=== PATIENT | female | born 1935 | race Caucasian/White ===

== ENCOUNTER 2017-08-06 14:04 | Emergency (ER) | payer MEDICARE, SELFPAY ==
--- NOTE | 2017-08-06 15:56 | RAD ---
LEFT KNEE FOUR VIEWS: History: Knee pain. Comparison: None. FINDINGS: Severe medial compartment joint space narrowing. Chondrocalcinosis is present. Small joint effusion. NO acute displaced fracture or malalignment. IMPRESSION: Severe medial compartment osteoarthritic disease. POS: [facility]
[2017-08-06] MEDS ORDERED: Ketorolac Tromethamine 30 MG/ML VIAL ONE (16:36)
--- NOTE | 2017-08-06 16:37 | RAD ---
LUMBAR SPINE 3 VIEWS: HISTORY: Generalized lower back pain. COMPARISON: None. FINDINGS: There is a compression of L1 approximately 50% anterior height loss and 10% posterior height loss. T here is also compression fracture at L2 with approximately 20% anterior height loss. Anterolisthesis of L5 over S1 approximately 6 mm. Extensive vascular calcifications of the aorta. IMPRESSION: 1. L1 and L2 compression fractures, age indeterminate. 2. A 6 mm L5 over S1 anterolisthesis likely due to severe facet arthropathy. POS: [facility]
== END 2017-08-06 18:03 ==
LOC: ERS 14:04
DX: M48.56XA Collapsed vertebra, not elsewhere classified, lumbar region, initial encounter for fracture (principal); E78.5 Hyperlipidemia, unspecified; I10 Essential (primary) hypertension; F03.90 Unspecified dementia, unspecified severity, without behavioral disturbance, psychotic disturbance, mood disturbance, and anxiety; F32.9 Major depressive disorder, single episode, unspecified; I49.9 Cardiac arrhythmia, unspecified
CPT/HCPCS: 72100; 96372; J1885

== ENCOUNTER 2017-09-20 10:53 | Observation (INO) | payer MEDICARE, OTHER ==
[2017-09-20 11:24] LABS: #Basophils 0.1 thou/uL (0.0-0.2); #Lymphocytes 1.1 thou/uL (1.20-3.40); #Monocytes 0.6 thou/uL (0.11-0.59); #Neutrophils 2.2 thou/uL (1.40-6.50); %Basophils 1.7 % (0.0-1.0); %Eosinophils 0.8 % (0.0-10.0); %Lymphocytes 27.4 % (21.0-51.0); %Monocytes 14.3 % (0.0-10.0); %Neutrophils 55.9 % (42.0-75.0); Hemoglobin 12.5 g/dL (12.0-16.0); Mean Corpuscular HGB CONC 32.7 g/dL (32.0-36.0); Mean Corpuscular Hemoglobin 27.2 pg (27.0-31.0); Mean Corpuscular Volume 83.2 fl (81.0-99.0); Mean Platelet Volume 8.8 fL (7.4-10.4); Platelet Count 66 thou/uL (130-400); RBC Distribution Width 13.8 % (11.5-14.5); Red Blood Cell (RBC) Count 4.62 mill/uL (4.20-5.40); White Blood Cell (WBC) Count 3.9 thou/uL (4.8-10.8)
--- NOTE | 2017-09-20 11:35 | RAD ---
CHEST 1 VIEW: HISTORY: Chest pain. COMPARISON: 07/05/15. FINDINGS: Cardiac silhouette is magnified by projection. Pulmonary vasculature unremarkable. Mediastinum midl ine with aortic calcification and a multilead left subclavian cardiac electronic device. Calcified g ranulomata are consistent with healed granulomatous disease. No lobar consolidation or evidence of p neumothorax. IMPRESSION: 1. Atherosclerosis. 2. Chronic-type findings appear stable. POS: [facility]
[2017-09-20 11:52] LABS: ALT (SGPT) 9 U/L (8-55); AST (SGOT) 20 U/L (5-34); Albumin 4.2 g/dL (3.4-4.8); Alkaline Phosphatase 78 U/L (40-150); Anion Gap 13 mmol/L (10-20); BUN (Urea Nitrogen) 16 mg/dL (9.8-20.1); Bilirubin, Total 1.1 mg/dL (0.2-1.2); Calc. Creatinine Clearance 0 mL/min (70-130); Calcium 9.8 mg/dL (7.8-10.44); Carbon Dioxide 30 mmol/L (23-31); Estimated GFR-MDRD 52; Globulin 2.4 g/dL (2.4-3.5); Glucose 94 mg/dL (83-110); Potassium 3.6 mmol/L (3.5-5.1); Protein, Total 6.6 g/dL (6.0-8.3); Sodium 140 mmol/L (136-145)
[2017-09-20 11:55] LABS: CKMB 0.8 ng/mL (0-6.6); Troponin I 0.016 ng/mL (< 0.028)
[2017-09-20 12:12] LABS: Chloride 101 mmol/L (98-107)
[2017-09-20 14:36] LABS: Troponin I 0.024 ng/mL (< 0.028)
[2017-09-20 14:41] VITALS: BMI 29.3
[2017-09-20 17:34] LABS: Troponin I 0.021 ng/mL (< 0.028)
[2017-09-20] MEDS ORDERED: Ketorolac Tromethamine 30 MG/ML VIAL IVP PRN (18:58)
[2017-09-20] MEDS ORDERED: traMADol HCl 50 MG TAB PO PRN (19:06)
[2017-09-20] MEDS ORDERED: Acetaminophen/Codeine 30-300mg Tablet PO PRN (19:07)
[2017-09-20] MEDS ORDERED: Acetaminophen 325 MG TAB PO PRN (19:08)
[2017-09-20] MEDS ORDERED: guaiFENesin/Codeine Phosphate 200 mg/20 mg 10 ml UD Cup PO PRN (19:12)
[2017-09-20] MEDS ORDERED: Fluticasone Propionate Nasal Spray 16 gm Bottle NASAL PRN (19:13)
[2017-09-20] MEDS ORDERED: Loperamide HCl 2 MG CAP PO PRN (19:13)
[2017-09-20] MEDS ORDERED: Melatonin 3 MG TAB PO PRN (19:14)
[2017-09-20] MEDS ORDERED: pyridOXINE 50 MG (B6) TAB PO PRN (19:15)
--- NOTE | 2017-09-20 20:09 | RAD ---
LEFT RIB STANDARD: History: Pain to left rib area. Comparison: Radiograph same day. FINDINGS: No displaced left sided rib fracture. Moderate degenerative disease of the left shoulder. IMPRESSION: No displaced left sided rib fracture. POS: [facility]
[2017-09-20] MEDS ORDERED: Atorvastatin Calcium 10 MG TAB PO SCH (21:00)
[2017-09-20] MEDS: Calcium Carbonate 500 MG ChewTAB PO SCH (21:22)
[2017-09-20] MEDS: Vit A,C & E/Lutein/Minerals Tablet PO SCH (21:22)
--- NOTE | 2017-09-21 00:55 | HP ---
DATE OF ADMISSION: 09/20/2017 REASON FOR ADMISSION AND CHIEF COMPLAINT: Chest pain. HISTORY OF PRESENT ILLNESS: Ms. Flood is an 82-year-old female with past medical histor y of hypertension, status post defibrillator, fractured hip, developed chest pain in the left side be low the left breast area. The patient stated the pain started last night, but got worse this morning . The patient did not have any nausea, vomiting, and no diaphoresis. The patient states the pain is sharp in nature, nonradiating. The patient was sent to hospital because of left-sided chest pain. There is no history of any kind of injury, did not fall, did not hit the chest. In the ER, the patie nt was evaluated and found to have normal cardiac enzymes. In view of risk factors, patient is admit leilani to rule out myocardial infarction. PAST MEDICAL HISTORY: 1. Hypertension. 2. Decreased LV function with expecting on 35%. 3. Cardiac dysrhythmia by history. 4. Fracture, right hip. 5. History of transient ischemic attack. 6. Fracture of the L1-L2, age undetermined. PAST SURGICAL HISTORY: 1. Status post hysterectomy. 2. Status post open reduction and internal fixation, right hip fracture status post defibrillator pl acement. CURRENT MEDICATIONS: The patient is on Tylenol with codeine q.i.d. p.r.n., Zoloft 50 mg daily, aspir in 81 mg daily, calcium carbonate tablets b.i.d., Namenda 10 mg b.i.d., Lipitor 10 mg daily, valsarta n/hydrochlorothiazide 320/12.5 daily, Zofran p.r.n., Flonase nasal spray daily, and melatonin at bedt katina p.r.n. ALLERGIES: No known drug allergies. FAMILY HISTORY: Nothing of interest. SOCIAL HISTORY: The patient is a resident of [facility]. No history of smoking. No hi story of alcohol intake. REVIEW OF SYSTEMS: Cardiovascular: Sharp pain in the left side of the chest. No shortness of breat h. Respiratory: No fever of cough. Gastrointestinal: No nausea or vomiting, no abdominal pain. G enitourinary: No dysuria or hematuria. Central nervous system: No headache, no dizziness. PHYSICAL EXAMINATION: GENERAL: The patient is alert, awake, not well oriented. VITAL SIGNS: Temperature 98, pulse 74, respirations 20, blood pressure 160/70. HEENT: Head is normocephalic, atraumatic. NECK: Supple. No JVD. LUNGS: Bilateral air entry present. No rales or rhonchi. Chest wall tender below the left breast. CARDIAC: S1 and S2, regular. ABDOMEN: Soft, no distention, no tenderness. Normal bowel sounds present. RECTAL: Deferred. CENTRAL NERVOUS SYSTEM: No focal deficit. There is some tenderness in the lower rib area. LABORATORY DATA AND X-RAY FINDINGS: CBC shows WBC 3.9, hemoglobin 12, hematocrit 38, platelets 66. D-dimer 0.42. Metabolic panel: Sodium 140, potassium 3.6, chloride 101, CO2 of 13, BUN 16, creatini ne 1, glucose 94, CK-MB 0.8, troponin 0.016. BNP was 158. Chest x-ray showed chronic changes. EKG showed ventricular paced rhythm, no acute ST-T wave changes. ASSESSMENT: 1. Chest pain, rule out myocardial infarction. 2. Lower rib pain on the left side. 3. Hypertension. 4. History of right hip fracture status post open reduction and internal fixation. 5. Chronic thrombocytopenia. 6. L1-L2 compression fracture old. PLAN: 1. Vital signs q.4 hours. 2. Activity as tolerated. 3. Allergies: NKDA. 4. Hep-Lock. 5. Continue intermediate medication. 6. We will obtain stress test. 7. Toradol 30 q.6 hours p.r.n. 8. X-ray of the left lower ribs.
[2017-09-21] MEDS: Ondansetron ODT 4 MG TAB PO SCH ×3 (01:43→13:03)
[2017-09-21] MEDS ORDERED: Hydrochlorothiazide 25 MG TAB PO SCH (09:00)
[2017-09-21] MEDS ORDERED: Oxybutynin ER 5 MG TAB PO SCH (09:00)
[2017-09-21] MEDS ORDERED: Valsartan 80 MG TAB PO SCH (09:00)
[2017-09-21] MEDS ORDERED: Prevnar 13-Val Conj/PF 0.5 ML SYRINGE IM ONE (09:00)
[2017-09-21] MEDS: Calcium Carbonate 500 MG ChewTAB PO SCH (12:52)
[2017-09-21] MEDS: Vit A,C & E/Lutein/Minerals Tablet PO SCH (12:53)
[2017-09-21] MEDS ORDERED: ADENOSINE 60 MG/20 ML VIAL ONE (14:26)
--- NOTE | 2017-09-21 15:28 | NM ---
CARDIAC SPECT: CLINICAL HISTORY: 82-year-old female with chest pain, hypertension, dyslipidemia, and CVA. TECHNIQUE: A myocardial perfusion scan was performed using the single isotope one day protocol with technetium-9 9m sestamibi. 11 mCi were injected intravenously for the rest exam followed by 32 mCi for the stress exam. Pharmacologic stress with Adenosine was monitored and interpreted by Dr. Seay. FINDINGS: Homogeneous tracer distribution is seen in the myocardial segments on stress and rest images without fixed or reversible defects. GATED SPECT LVEF: 34%. WALL MOTION EXAM: Global hypokinesis. IMPRESSION: No evidence of reversible ischemia. POS: [facility]
[2017-09-21 16:37] VITALS: BP 160/89; TEMP 97.6
--- NOTE | 2017-09-22 11:49 | DIS ---
DATE OF ADMISSION: 09/20/2017 DATE OF DISCHARGE: 09/21/2017 ADMITTING DIAGNOSES: 1. Chest pain. 2. Lower rib pain on the left side. 3. Hypertension. 4. History of right hip fracture. 5. Chronic thrombocytopenia. 6. L1 and L2 compression fracture old. FINAL DIAGNOSES: 1. Chest pain. No evidence of acute myocardial infarction, negative Cardiolite stress test. 2. Lower rib pain on the left side. No evidence of rib fracture. 3. Hypertension. 4. Chronic thrombocytopenia, stable. 5. L1 and L2 compression fracture old. BRIEF SUMMARY OF HOSPITAL COURSE: Ms. Holland is an 82-year-old female admitted because o f chest pain. In view of risk factors, the patient was admitted to rule out myocardial infarction. Serial cardiac enzymes are there within normal limits. A Cardiolite stress test was done and it was reported as negative for coronary ischemia. A rib x-ray was done in the rib area and x-ray of the ri b showed no evidence of fracture. The patient's pain was controlled. She did not require any more p ain medication. In view of improvement, the patient was discharged. At the time of discharge, she w as stable. Her vital signs were stable. Lungs clear. Heart sounds regular. Abdomen soft, nontende r. Bowel sounds present. DISCHARGE MEDICATIONS: Include valsartan with hydrochlorothiazide 320/12.5 daily, Tylenol with codei ne p.r.n., melatonin 1 mg 2 tablets at bedtime p.r.n., Flonase nasal spray daily, Imodium p.r.n., ser traline 50 mg daily, calcium carbonate 500 b.i.d., Namenda 10 mg daily, Ditropan XL 5 mg daily, atorv astatin 10 mg daily, aspirin 81 mg daily, Tylenol p.r.n., tramadol p.r.n. The patient will be followed up at the long term in 2 weeks.
== END 2017-09-21 17:03 ==
LOC: ERS 10:53 → 2NO 14:30
PROVIDERS: ADMIT Internal Medicine; ATTEND Internal Medicine
DX: R07.9 Chest pain, unspecified (principal); R07.81 Pleurodynia; I10 Essential (primary) hypertension; D69.6 Thrombocytopenia, unspecified; I50.30 Unspecified diastolic (congestive) heart failure; Z86.73 Personal history of transient ischemic attack (TIA), and cerebral infarction without residual deficits; Z79.82 Long term (current) use of aspirin; Z79.899 Other long term (current) drug therapy
CPT/HCPCS: 71045; 71100; 78452; 80053; 82553; 83880; 84484 ×2; 85025; 85379; 93005; 93017; 96374; 99285; A9500; G0378; 36415; 96361; J0153; J2270; Q0162

== ENCOUNTER 2017-10-08 08:42 | Day surgery (SDC) | payer MEDICARE ==
[2017-10-07 14:46] VITALS: BMI 31.7
[2017-10-08 09:29] VITALS: BP 169/90; TEMP 97.5
[2017-10-08] MEDS ORDERED: Iopamidol-M 200 41% 20 ML VIAL ONE (09:52)
--- NOTE | 2017-10-08 12:51 | RAD ---
LUMBAR MYELOGRAM: HISTORY: Spinal stenosis. COMPARISON: None. EXPOSURE: 0.6 minutes, 840.5 mGy*^m2. FINDINGS: Two views lumbar spine demonstrate 5 lumbar-type vertebral bodies. There is moderate, chronic compre ssion fracture at L1. There is 2 mm on retrolisthesis of L2 upon L3 and 5 mm anterolisthesis of L5 u alia S1. There are degenerative changes of posterior elements at L4-L5 and L5-S1. Successful lumbar puncture for intrathecal contrast administration. A total of 10 cc of Isovue 200M contrast administered intrathecally. The patient tolerated the procedure well. No immediate or post procedure complication. TECHNIQUE: Consent was obtained to perform a lumbar puncture for intrathecal contrast administration. The patie nt's back was evaluated. The L3-L4 level is deemed appropriate. The skin was prepped and draped in a sterile fashion. 1% Lidocaine, buffered with sodium bicarbonate was used for local anesthesia. Un sushma fluoroscopic guidance, a 22-gauge spinal needle was advanced into the CSF space. A total of 10 c c of Isovue 200M contrast was administered intrathecally. The patient tolerated the procedure well. No immediate or postprocedure complications. IMPRESSION: Successful lumbar puncture for intrathecal contrast administration. POS: [facility]
--- NOTE | 2017-10-08 13:08 | CT ---
POST MYELOGRAM LUMBAR SPINE CT: HISTORY: Spinal stenosis. COMPARISON: None. TECHNIQUE: CT lumbar spine is performed without contrast. Reformatted images are submitted for interpretation. FINDINGS: A moderate chronic compression fracture at L1. Mild chronic compression fracture at L2. 2.8 mm of r etrolisthesis of L2 upon L3. 4 mm anterolisthesis of L5 upon S1. Visualized solid organs, retroperitoneal structures are unremarkable. There is diverticulosis of the colon. No diverticulitis. Posterior decompressive laminectomy defects at L5-S1. Conus medullaris terminates at the L1 level. T11-T12 and T12-L1: No high-grade central canal stenosis or high-grade foraminal narrowing of L1 estella tebral body. Moderate central canal stenosis due to retropulsion. L1-L2: No high-grade central canal stenosis or high-grade foraminal narrowing. L2-L3: No high-grade central canal stenosis or high-grade foraminal narrowing L3-L4: No high-grade central canal stenosis or high-grade foraminal narrowing. L4-L5: No high-grade central canal stenosis or high-grade foraminal narrowing. L5-S1: No high-grade central canal stenosis or high-grade foraminal narrowing. IMPRESSION: 1. Spondylolisthesis as above. 2. Chronic compression fractures as above. 3. No high-grade central canal stenosis or high-grade foraminal narrowing. POS: [facility]
== END 2017-10-08 12:50 | disposition home or self-care (01) ==
LOC: RAD 08:42
PROVIDERS: ATTEND Neurological Surgery
PROC: B02BY0Z Computerized Tomography (CT Scan) of Spinal Cord using Other Contrast, Unenhanced and Enhanced (ICD-10-PCS; principal; 2017-10-08)
DX: M48.062 Spinal stenosis, lumbar region with neurogenic claudication (principal); I25.10 Atherosclerotic heart disease of native coronary artery without angina pectoris; I25.2 Old myocardial infarction; F03.90 Unspecified dementia, unspecified severity, without behavioral disturbance, psychotic disturbance, mood disturbance, and anxiety; D69.6 Thrombocytopenia, unspecified; Z79.82 Long term (current) use of aspirin; Z79.899 Other long term (current) drug therapy
CPT/HCPCS: 62304; 72132

== ENCOUNTER 2019-05-08 11:22 | Observation (INO) | payer MEDICARE, OTHER ==
--- NOTE | 2019-05-08 12:18 | RAD ---
EXAM: Single view of the chest HISTORY: Weakness and altered mental status COMPARISON: 09/20/2017 FINDINGS: Single view of the chest shows a normal sized cardiomediastinal silhouette. A triple lead pacemaker is unchanged in position. A calcified granuloma projects over the right chest. No consolidation or pleural effusion are seen. The bones are unremarkable. IMPRESSION: No evidence of acute cardiopulmonary disease
[2019-05-08 12:25] LABS: #Basophils 0.1 thou/uL (0.0-0.2); #Monocytes 0.6 thou/uL (0.11-0.59); #Neutrophils 2.3 thou/uL (1.40-6.50); %Basophils 1.3 % (0.0-1.0); %Eosinophils 0.8 % (0.0-10.0); %Lymphocytes 24.7 % (21.0-51.0); %Monocytes 14.9 % (0.0-10.0); %Neutrophils 58.4 % (42.0-75.0); Mean Corpuscular HGB CONC 31.9 g/dL (32.0-36.0); Mean Corpuscular Hemoglobin 26.1 pg (27.0-31.0); Mean Platelet Volume 9.4 fL (7.4-10.4); Platelet Count 76 thou/uL (130-400); RBC Distribution Width 13.7 % (11.5-14.5)
[2019-05-08 12:50] LABS: ALT (SGPT) Less than 7 U/L (8-55); AST (SGOT) 14 U/L (5-34); Albumin 3.8 g/dL (3.4-4.8); Alkaline Phosphatase 66 U/L (40-110); Anion Gap 12 mmol/L (10-20); BUN (Urea Nitrogen) 19 mg/dL (9.8-20.1); Bilirubin, Total 0.8 mg/dL (0.2-1.2); Calc. Creatinine Clearance 0 mL/min (70-130); Calcium 9.2 mg/dL (7.8-10.44); Carbon Dioxide 30 mmol/L (23-31); Chloride 103 mmol/L (98-107); Estimated GFR-MDRD 65; Globulin 2.4 g/dL (2.4-3.5); Glucose 91 mg/dL (83-110); Potassium 3.8 mmol/L (3.5-5.1); Protein, Total 6.2 g/dL (6.0-8.3); Sodium 141 mmol/L (136-145)
[2019-05-08 12:55] LABS: Bacteria/HPF 4+ HPF (None Seen); Bilirubin Negative (Negative); Blood, Urine Negative (Negative); Clarity Turbid (Clear); Glucose, Urine (Dipstick) Normal (Negative); Leukocyte Negative Leu/uL (Negative); Nitrite Negative (Negative); Protein, Urine (Dipstick) 30 mg/dL (Neg-Trace); RBC/HPF 0-3 HPF (0-3); Urobilinogen 3 mg/dL (Less than 2); WBC/HPF 0-3 HPF (0-3)
--- NOTE | 2019-05-08 14:11 | CT ---
EXAM: CT brain without contrast HISTORY: Generalized weakness and altered mental status COMPARISON: 11/01/2016 TECHNIQUE: Multiple contiguous axial images were obtained and a CT of the brain without contrast. FINDINGS: The brain is normal in morphology and attenuation without focal lesions or confluent areas of infarction. There is no evidence of hydrocephalus, intracranial hemorrhage, or extra-axial fluid collection. The calvarium and overlying soft tissues are unremarkable. The visualized paranasal sinuses and masto id air cells are well aerated. IMPRESSION: No evidence of acute intracranial abnormality
[2019-05-08] MEDS ORDERED: Ondansetron PF 4 MG/2 ML Vial IVP PRN (17:58)
[2019-05-08] MEDS ORDERED: Ondansetron ODT 4 MG TAB SL PRN (17:58)
[2019-05-08 18:55] VITALS: BMI 30.3
[2019-05-09] MEDS ORDERED: Prevnar 13-Val Conj/PF 0.5 ML SYRINGE IM ONE (09:00)
[2019-05-09] MEDS ORDERED: FLU VACC TS2019-20(65YR UP)/PF 180 MCG/0.5 ML SYRINGE IM ONE (09:00)
[2019-05-09] MEDS ORDERED: Acetaminophen/Codeine 30-300mg Tablet PO PRN ×2 (13:47→14:39)
[2019-05-09] MEDS ORDERED: Acetaminophen 325 MG TAB PO PRN (14:37)
[2019-05-09] MEDS ORDERED: Fluticasone Propionate Nasal Spray 16 gm Bottle NASAL PRN (14:40)
[2019-05-09] MEDS ORDERED: guaiFENesin/Codeine Phosphate 200 mg/20 mg 10 ml UD Cup PO PRN (14:41)
[2019-05-09] MEDS ORDERED: Aspirin Chewable 81 MG TAB PO SCH (15:00)
--- NOTE | 2019-05-09 15:05 | ULT ---
EXAM: Carotid ultrasound HISTORY: Stroke/TIA COMPARISON: 11/02/2016 TECHNIQUE: Multiplanar grayscale and color Doppler images were obtained in a carotid ultrasound. Spec tral analysis of the Doppler waveforms were performed. FINDINGS: No significant plaque is visualized in either internal carotid artery. No significant plaque is seen in either common carotid artery. The Doppler waveforms are normal in the visualized vessels. Peak systolic velocity in the right internal carotid artery 80 cm/s. Peak systolic velocity in the right common carotid artery 63 cm/s. The right ICA/CCA ratio is 1.3. Peak systolic velocity in the left internal carotid artery 47 cm/s. Peak systolic velocity in the left common carotid artery 63 cm/s. The left ICA/CCA ratio is 0.8. Both vertebral arteries demonstrate antegrade flow without focal stenosis IMPRESSION: No evidence of hemodynamically significant stenosis.
[2019-05-09] MEDS: cefTRIAXone\\ROCEPHIN 2 GM in Sodium Chloride 0.9% 100 ML IVPB SCH (19:46)
[2019-05-09] MEDS: Vit A,C & E/Lutein/Minerals Tablet PO SCH (20:34)
[2019-05-09] MEDS ORDERED: Atorvastatin Calcium 10 MG TAB PO SCH (21:00)
[2019-05-10] MEDS: cefTRIAXone\\ROCEPHIN 2 GM in Sodium Chloride 0.9% 100 ML IVPB SCH (06:52)
--- NOTE | 2019-05-10 08:23 | HP ---
CHIEF COMPLAINT: Weakness and change in mental status. HISTORY OF PRESENT ILLNESS: Ms. Holalnd is an 84-year-old female with past medical history of hypertension, dementia, and hyperlipidemia, was found to be complaining of weakness, feeling sick, not eating well, also complained of abdominal pain, lower abdomen. No nausea or vomiting. No fever. No chest pain. No shortness of breath. Because of change in mental status as well as weakness, not eating, the patient was sent to the hospital for suspected stroke. The patient was seen in the ER, felt the patient probably have TIA. Her weakness has improved somewhat. She is admitted for further evaluation and management. PAST MEDICAL HISTORY: 1. Hypertension. 2. Hyperlipidemia. 3. Dementia. 4. History of TIA. 5. Fracture of the L1-L2. 6. LV dysfunction with acute ejection fraction 35%. 7. bipolar disorder. PAST SURGICAL HISTORY: 1. Status post hysterectomy. 2. Status post ORIF, right hip fracture. 3. Status post defibrillator placement. CURRENT MEDICATIONS: The patient is on: 1. Colace 100 mg daily. 2. Depakote 1 capsule daily 125 mg. 3. Mom 30 ml prn. 4. Tylenol p.r.n. 5. Lipitor 10 mg at bedtime. 6. Aspirin 81 mg daily. 7. Imodium p.r.n. 8. Namenda 10 mg daily. 9. Zofran p.r.n. 10. Zoloft 75 mg daily. 11. Ditropan XL 5 mg daily. 12. Valsartan/hydrochlorothiazide 320/12.5 daily. ALLERGIES: NKDA. FAMILY HISTORY: Nothing contributory. SOCIAL HISTORY: The patient is a resident of [facility]. No history of smoking. No history of alcohol. REVIEW OF SYSTEMS: CARDIOVASCULAR: No chest pain. No shortness of breath. RESPIRATORY: No fever or cough. GASTROINTESTINAL: Has abdominal pain. No nausea or vomiting. CENTRAL NERVOUS SYSTEM: No headache. No dizziness. PHYSICAL EXAMINATION: GENERAL: The patient is alert, awake, oriented x2. VITAL SIGNS: Temperature 98, pulse 69, respirations 20, blood pressure 140/80. HEENT: Head is normocephalic and atraumatic. Pupils are equal and reactive. Nasopharynx is pale and dry. NECK: Supple. No JVD. LUNGS: Bilateral air entry present. No rales. No rhonchi. HEART: S1 and S2 regular. ABDOMEN: Soft. No distention. Tender in the suprapubic area. No guarding. No rigidity. Bowel sounds present. RECTAL: Deferred. CENTRAL NERVOUS SYSTEM: The patient alert, awake, oriented x2. Motor system, power 4/5 in all extremities. Deep tendon reflex 2+ bilaterally. Plantars downgoing. Sensory intact. LABORATORY DATA: CBC shows WBC 4, hemoglobin 11, hematocrit 34, platelets 76. Metabolic panel; sodium 140, potassium 3.9, chloride 102, CO2 of 30, BUN 12, creatinine 0.9, glucose 91. Urinalysis; urine wbc 0-3, bacteria 4+. Chest x- ray negative. CT scan of the brain; no evidence of acute intracranial abnormality. EKG shows pacemaker rhythm. ASSESSMENT: 1. Weakness and altered mental status, rule out transient ischemic attack and rule out cerebrovascular accident. 2. Urinary tract infection. 3. Metabolic encephalopathy. 4. Hypertension. 5. Hyperlipidemia. 6. Dementia. 7. LV dysfunction. 8. Status post AICD. PLAN: 1. Vital signs q.4 hours. 2. Activity, as tolerated. 3. Allergies, NKDA. 4. Hep-Lock. 5. Diet, regular. 6. Rocephin 2 g IV piggyback daily. 7. Continue long term medications. 8. CT scan of brain with contrast. 9. The patient will possibly be discharged tomorrow. Job ID: [id number] MTDD
[2019-05-10] MEDS ORDERED: Hydrochlorothiazide 25 MG TAB PO SCH (09:00)
[2019-05-10] MEDS ORDERED: Docusate 100 MG CAP PO SCH (09:00)
[2019-05-10] MEDS ORDERED: Aspirin Chewable 81 MG TAB PO SCH (09:00)
[2019-05-10] MEDS ORDERED: Potassium Chloride 10 MEQ TAB PO SCH (09:00)
[2019-05-10] MEDS ORDERED: Oxybutynin ER 5 MG TAB PO SCH (09:00)
[2019-05-10] MEDS ORDERED: Valsartan 80 MG TAB PO SCH (09:00)
[2019-05-10] MEDS ORDERED: Divalproex Sodium 125 mg Sprinkle Capsule PO SCH (09:00)
--- NOTE | 2019-05-10 09:14 | CT ---
CT Brain WO Con: 05/10/2019 8:00 AM CLINICAL HISTORY: Concern for stroke; poor historian. IMAGING TECHNIQUE: Multiple CT images were obtained of the brain without IV contrast. COMPARISON: CT the brain without contrast dated May 08, 2019 FINDINGS: Brain: The remote cortically and subcortically based right frontal lobe infarct with encephalomalaci a is stable. Severe chronic small vessel white matter ischemic changes stable. Remote lacunar infarct involving the left thalamus is stable. No acute infarct or hemorrhage is present. No midline shift is noted. Ventricles: Normal. No hydrocephalus. Skull: Intact. Visualized Paranasal sinuses: Clear. Mastoid air cells:Clear. Extracranial soft tissues:Normal. IMPRESSION: 1. No acute intracranial abnormality. 2. Stable severe chronic ischemic change as above.
[2019-05-10] MEDS: Vit A,C & E/Lutein/Minerals Tablet PO SCH (09:26)
[2019-05-10 11:35] VITALS: BP 166/82; TEMP 98.2
== END 2019-05-10 12:34 ==
LOC: ERS 11:22 → 2SE 18:45
PROVIDERS: ADMIT Internal Medicine; ATTEND Internal Medicine
DX: R53.1 Weakness (principal); R41.82 Altered mental status, unspecified; I10 Essential (primary) hypertension; E78.5 Hyperlipidemia, unspecified; F03.90 Unspecified dementia, unspecified severity, without behavioral disturbance, psychotic disturbance, mood disturbance, and anxiety; F31.9 Bipolar disorder, unspecified; N39.0 Urinary tract infection, site not specified; G93.41 Metabolic encephalopathy; G47.00 Insomnia, unspecified; Z86.73 Personal history of transient ischemic attack (TIA), and cerebral infarction without residual deficits; Z79.82 Long term (current) use of aspirin; Z79.899 Other long term (current) drug therapy; Z95.810 Presence of automatic (implantable) cardiac defibrillator
CPT/HCPCS: 51701; 70450 ×2; 71045; 83605; 84484; 87077; 87086; 93005; 93306; 93880; 96361; 96374; 97139 ×3; 99285; G0378 ×4; 36415; 80053; 81003; 81015; 84443; 85025; 96360; A4353; J0696; J3490

== ENCOUNTER 2020-03-04 11:36 | Emergency (ER) | payer MEDICARE, OTHER ==
--- NOTE | 2020-03-04 12:37 | RAD ---
EXAM: Chest one view: HISTORY: Cough COMPARISON: 05/08/2019 FINDINGS: Left ICD. Atherosclerotic ectatic changes of the aorta. Stable right midlung zone old granuloma calcification Heart size: Within normal limits. Lungs: Clear of acute process. No evidence for confluent lobar pneumonia, significant pleural effusion, acute edema, or pneumothorax , or other significant acute process. IMPRESSION: No significant acute intrathoracic disease.
[2020-03-04 12:40] LABS: Bacteria/HPF 4+ HPF (None Seen); Bilirubin Negative (Negative); Blood, Urine 1+ (Negative); Clarity Turbid (Clear); Glucose, Urine (Dipstick) Normal (Negative); Ketone, Urine Negative (Negative); Leukocyte 75 Leu/uL (Negative); Nitrite 2+ (Negative); Protein, Urine (Dipstick) 30 mg/dL (Neg-Trace); Specific Gravity, Urine 1.021 (1.002-1.036)
[2020-03-04 13:15] LABS: Hemoglobin 9.6 g/dL (12.0-16.0); Mean Corpuscular HGB CONC 31.9 g/dL (32.0-36.0); Mean Corpuscular Volume 81.6 fL (78.0-98.0); Platelet Count 55 thou/uL (130-400); RBC Distribution Width 13.8 % (11.5-14.5); White Blood Cell (WBC) Count 5.7 thou/uL (4.8-10.8)
[2020-03-04 13:33] LABS: ALT (SGPT) Less than 7 U/L (8-55); AST (SGOT) 10 U/L (5-34); Albumin 3.5 g/dL (3.4-4.8); Alkaline Phosphatase 50 U/L (40-110); Anion Gap 15 mmol/L (10-20); BUN (Urea Nitrogen) 22 mg/dL (9.8-20.1); Bilirubin, Total 0.8 mg/dL (0.2-1.2); Calc. Creatinine Clearance 0 mL/min (70-130); Calcium 8.5 mg/dL (7.8-10.44); Carbon Dioxide 23 mmol/L (23-31); Chloride 107 mmol/L (98-107); Estimated GFR-MDRD 47; Globulin 2.5 g/dL (2.4-3.5); Glucose 109 mg/dL (83-110); Potassium 3.7 mmol/L (3.5-5.1); Sodium 141 mmol/L (136-145)
[2020-03-04 13:48] LABS: Band 24 % (5-11); Hypochromia SLIGHT = 6-15 cells (100X) (0-5/hpf); Lymphocytes 8 % (21-51); MDiff Complete? YES; Monocytes 20 % (0-10); Neutrophil 45 % (42-75); Ovalocytes SLIGHT = 2-5 cells (100X) (0-1/hpf); Platelet Morphology Comment Appears Decreased; Polychromasia SLIGHT = 2-3 cells (100X) (0-2/hpf); Reactive Lymphocytes 3 % (0-10); Tear Drops SLIGHT = 2-5 cells (100X) (0-1/hpf)
[2020-03-04 18:43] LABS: SARS-CoV-2 MS2 Positive; SARS-CoV-2 N Gene Negative; SARS-CoV-2 S Gene Negative; SARS-CoV-2 by NAA Not Detected (NotDetected); SARS-CoV-2 orf1ab Negative
== END 2020-03-04 14:57 ==
LOC: ERS 11:36
DX: N39.0 Urinary tract infection, site not specified (principal); Z20.828 Contact with and (suspected) exposure to other viral communicable diseases; E86.0 Dehydration; E78.5 Hyperlipidemia, unspecified; E78.00 Pure hypercholesterolemia, unspecified; I10 Essential (primary) hypertension; F03.90 Unspecified dementia, unspecified severity, without behavioral disturbance, psychotic disturbance, mood disturbance, and anxiety; G47.00 Insomnia, unspecified; F32.9 Major depressive disorder, single episode, unspecified
CPT/HCPCS: 51701; 71045; 80053; 83605; 85025; 87040; 87077; 87086; 87186; 87804 ×2; 93005; 99285; U0003; 36415; 81003; 81015; 87635

== ENCOUNTER 2020-09-27 19:05 | Observation (INO) | payer MEDICARE, MEDICAID ==
[2020-09-27 20:23] LABS: Hemoglobin 10.8 g/dL (12.0-16.0); Mean Corpuscular HGB CONC 33.3 g/dL (32.0-36.0); Mean Corpuscular Hemoglobin 26.5 pg (27.0-31.0); Mean Corpuscular Volume 79.4 fL (78.0-98.0); RBC Distribution Width 13.6 % (11.5-14.5); Red Blood Cell (RBC) Count 4.07 mill/uL (4.20-5.40); White Blood Cell (WBC) Count 2.7 thou/uL (4.8-10.8)
[2020-09-27 20:30] LABS: ALT (SGPT) Less than 7 U/L (8-55); AST (SGOT) 13 U/L (5-34); Albumin 4.3 g/dL (3.4-4.8); Alkaline Phosphatase 70 U/L (40-110); Anion Gap 15 mmol/L (10-20); BUN (Urea Nitrogen) 26 mg/dL (9.8-20.1); Bilirubin, Total 0.7 mg/dL (0.2-1.2); Calc. Creatinine Clearance 0 mL/min (70-130); Calcium 9.4 mg/dL (7.8-10.44); Carbon Dioxide 25 mmol/L (23-31); Chloride 105 mmol/L (98-107); Globulin 2.4 g/dL (2.4-3.5); Glucose 126 mg/dL (83-110); Potassium 3.7 mmol/L (3.5-5.1); Protein, Total 6.7 g/dL (5.8-8.1); Sodium 141 mmol/L (136-145)
[2020-09-27 20:40] LABS: #Lymphocytes 1.1 thou/uL (1.20-3.40); #Monocytes 0.4 thou/uL (0.11-0.59); #Neutrophils 1.2 thou/uL (1.40-6.50); %Eosinophils 0.6 % (0.0-10.0); %Lymphocytes 41.6 % (21.0-51.0); %Monocytes 14.8 % (0.0-10.0); Elliptocytes SLIGHT = 2-5 cells (100X) (0-1/hpf); MDiff Complete? YES; Platelet Count 50 thou/uL (130-400); Platelet Morphology Comment Appears Decreased
[2020-09-27] MEDS ORDERED: Aspirin Chewable 81 MG TAB ONE (21:46)
[2020-09-27] MEDS ORDERED: Acetaminophen 325 MG TAB PO PRN (23:00)
[2020-09-27] MEDS ORDERED: Ondansetron PF 4 MG/2 ML Vial IVP PRN (23:00)
[2020-09-27] MEDS ORDERED: hydrALAZINE 20 MG/ML VIAL SLOW IVP PRN (23:03)
[2020-09-27] MEDS ORDERED: Amlodipine 5 MG TAB PO SCH (23:15)
[2020-09-28 00:50] VITALS: BMI 27.6
[2020-09-28 05:18] LABS: Hemoglobin 10.8 g/dL (12.0-16.0); Mean Corpuscular HGB CONC 32.6 g/dL (32.0-36.0); Mean Corpuscular Hemoglobin 25.9 pg (27.0-31.0); Mean Corpuscular Volume 79.3 fL (78.0-98.0); Mean Platelet Volume 11.4 fL (7.4-10.4); Platelet Count 49 thou/uL (130-400); RBC Distribution Width 13.7 % (11.5-14.5); Red Blood Cell (RBC) Count 4.17 mill/uL (4.20-5.40); White Blood Cell (WBC) Count 2.7 thou/uL (4.8-10.8)
[2020-09-28 05:36] LABS: Anion Gap 12 mmol/L (10-20); BUN (Urea Nitrogen) 21 mg/dL (9.8-20.1); Calc. Creatinine Clearance 50 mL/min (70-130); Calcium 9.5 mg/dL (7.8-10.44); Carbon Dioxide 28 mmol/L (23-31); Cardiac Risk 3.3 (Less than 4.5); Chloride 104 mmol/L (98-107); Cholesterol 154 mg/dl (< 200 Desired); Glucose 84 mg/dL (83-110); HDL Cholesterol 46 mg/dL (>60 Neg Risk); LDL Cholesterol, Calculated 90 mg/dL; Potassium 3.6 mmol/L (3.5-5.1); Sodium 140 mmol/L (136-145); Triglycerides 89 mg/dL (Less than 150)
[2020-09-28 06:05] LABS: Eosinophils 1 % (0-10); Lymphocytes 45 % (21-51); MDiff Complete? YES; Monocytes 12 % (0-10); Neutrophil 42 % (42-75); Platelet Morphology Comment Appears Decreased
[2020-09-28] MEDS ORDERED: Valsartan 80 MG TAB PO SCH (09:00)
[2020-09-28] MEDS ORDERED: Hydrochlorothiazide 25 MG TAB PO SCH (09:00)
[2020-09-28 16:00] VITALS: BP 168/83; TEMP 97.4
[2020-09-28] MEDS ORDERED: Amlodipine 5 MG TAB PO SCH (21:00)
== END 2020-09-28 16:05 ==
LOC: ERS 19:05 → 2SE 22:36
PROVIDERS: ADMIT Internal Medicine; ATTEND Internal Medicine
DX: H53.8 Other visual disturbances (principal); I16.0 Hypertensive urgency; I11.0 Hypertensive heart disease with heart failure; I50.22 Chronic systolic (congestive) heart failure; E78.5 Hyperlipidemia, unspecified; I69.354 Hemiplegia and hemiparesis following cerebral infarction affecting left non-dominant side; D61.818 Other pancytopenia; Z23 Encounter for immunization; Z79.82 Long term (current) use of aspirin; Z79.899 Other long term (current) drug therapy; Z95.810 Presence of automatic (implantable) cardiac defibrillator
CPT/HCPCS: 70450; 80048; 80053; 80061; 84484; 85025 ×2; 90732; 93005; 99285; G0009; 36415; 90471; G0378

== ENCOUNTER 2022-06-04 12:29 | Outpatient (CLI) | payer MEDICARE, OTHER, MEDICAID ==
[2022-06-04 13:41] LABS: Hemoglobin 10.4 g/dL (12.0-15.5); Mean Corpuscular HGB CONC 30.6 g/dL (32.0-36.0); Mean Corpuscular Volume 78.3 fl (81.6-98.3); Mean Platelet Volume 11.6 fl (7.4-10.4); Platelet Count 98 10x3/uL (150-450); RBC Distribution Width 16.7 % (11.5-14.5); Red Blood Cell (RBC) Count 4.34 10x6/uL (3.90-5.03); White Blood Cell (WBC) Count 4.2 10x3/uL (3.5-10.5)
[2022-06-04 13:44] LABS: INR-International Normal Ratio 1.1; PTT 29.9 sec (22.0-33.0); Prothrombin Time 11.9 sec (9.5-12.1)
[2022-06-04 13:47] LABS: Anion Gap 16 mmol/L (10-20); BUN (Urea Nitrogen) 17 mg/dL (9.8-20.1); Calc. Creatinine Clearance 0 mL/min (70-130); Calcium 9.9 mg/dL (7.8-10.44); Carbon Dioxide 27 mmol/L (23-31); Chloride 103 mmol/L (98-107); Estimated GFR 47; Glucose 97 mg/dL (83-110); Potassium 3.8 mmol/L (3.5-5.1); Sodium 142 mmol/L (136-145)
== END 2022-06-04 12:30 | disposition home or self-care (01) ==
LOC: LABBT 12:29
PROVIDERS: ATTEND Internal Medicine Cardiovascular Disease
DX: Z01.812 Encounter for preprocedural laboratory examination (principal); I48.4 Atypical atrial flutter
CPT/HCPCS: 80048; 83880; 85027; 85610; 85730

== ENCOUNTER 2022-06-06 09:40 | Day surgery (SDC) | payer OTHER, MEDICAID ==
[2022-06-06] MEDS ORDERED: PROPOFOL 20 ML ONE (12:05)
== END 2022-06-06 13:02 | disposition home or self-care (01) ==
LOC: SDC 09:40
PROVIDERS: ATTEND Internal Medicine Cardiovascular Disease
PROC: 5A2204Z Restoration of Cardiac Rhythm, Single (ICD-10-PCS; principal; 2022-06-06)
DX: I48.3 Typical atrial flutter (principal); I11.0 Hypertensive heart disease with heart failure; I50.22 Chronic systolic (congestive) heart failure; F03.90 Unspecified dementia, unspecified severity, without behavioral disturbance, psychotic disturbance, mood disturbance, and anxiety; I42.0 Dilated cardiomyopathy; J44.9 Chronic obstructive pulmonary disease, unspecified; M19.90 Unspecified osteoarthritis, unspecified site; K21.9 Gastro-esophageal reflux disease without esophagitis; E03.9 Hypothyroidism, unspecified; I45.10 Unspecified right bundle-branch block; I49.01 Ventricular fibrillation; Z86.16 Personal history of COVID-19; Z86.73 Personal history of transient ischemic attack (TIA), and cerebral infarction without residual deficits; Z79.01 Long term (current) use of anticoagulants; Z79.82 Long term (current) use of aspirin; Z79.899 Other long term (current) drug therapy; Z95.810 Presence of automatic (implantable) cardiac defibrillator; Z99.3 Dependence on wheelchair
CPT/HCPCS: 92960; 93005; 93010; J2704

== ENCOUNTER 2024-03-07 10:32 | Day surgery (SDC) | payer MEDICARE, MEDICAID, OTHER ==
[2024-03-04 13:56] VITALS: BMI 30.4
[2024-03-07 12:16] LABS: Anion Gap 13 mmol/L (10-20); BUN (Urea Nitrogen) 15 mg/dL (9.8-20.1); Calc. Creatinine Clearance 36 mL/min (70-130); Calcium 10.1 mg/dL (7.8-10.44); Carbon Dioxide 28 mmol/L (23-31); Chloride 103 mmol/L (98-107); Estimated GFR 42; Glucose 88 mg/dL (83-110); Potassium 3.9 mmol/L (3.5-5.1); Sodium 140 mmol/L (136-145)
[2024-03-07 12:23] LABS: INR-International Normal Ratio 1.2; Prothrombin Time 15.2 sec (12.0-14.7)
[2024-03-07 12:24] LABS: PTT 32.4 sec (22.9-36.1)
[2024-03-07] MEDS ORDERED: Gentamicin 80 MG/2 ML VIAL ONE (12:44)
[2024-03-07] MEDS ORDERED: CEFAZOLIN 2 GM VIAL ONE (12:45)
[2024-03-07 12:47] LABS: Hematocrit 40.2 % (36.0-47.0); Hemoglobin 12.9 g/dL (12.0-16.0); Mean Corpuscular HGB CONC 32.1 g/dL (32.0-36.0); Mean Corpuscular Volume 84.3 fL (78.0-98.0); Mean Platelet Volume 11.4 fL (7.4-10.4); Platelet Count 86 10x3/uL (130-400); RBC Distribution Width 13.7 % (11.5-14.5); Red Blood Cell (RBC) Count 4.77 mill/uL (4.20-5.40)
[2024-03-07] MEDS ORDERED: fentaNYL 50 mcg/mL 1 mL Vial ONE (13:54)
[2024-03-07] MEDS ORDERED: PHENYLEPHRINE-NS 100 MCG/ML 10 ML SYRINGE ONE (13:54)
[2024-03-07] MEDS ORDERED: Ondansetron PF 4 MG/2 ML Vial ONE (13:54)
[2024-03-07] MEDS ORDERED: PROPOFOL 200 MG/20 ML VIAL ONE (14:29)
[2024-03-07] MEDS ORDERED: Dexamethasone 20 MG/5 ML VIAL ONE (14:29)
[2024-03-07] MEDS ORDERED: Lidocaine 1% PF 5 ML VIAL ONE (14:29)
== END 2024-03-07 17:33 ==
LOC: SDC 10:32
PROVIDERS: ATTEND Internal Medicine Cardiovascular Disease
PROC: 0JPT0PZ Removal of Cardiac Rhythm Related Device from Trunk Subcutaneous Tissue and Fascia, Open Approach (ICD-10-PCS; principal; 2024-03-07)
PROC: 0JH608Z Insertion of Defibrillator Generator into Chest Subcutaneous Tissue and Fascia, Open Approach (ICD-10-PCS; 2024-03-07)
DX: I48.3 Typical atrial flutter (principal); I49.01 Ventricular fibrillation; I48.0 Paroxysmal atrial fibrillation; I67.1 Cerebral aneurysm, nonruptured; I42.0 Dilated cardiomyopathy; I11.0 Hypertensive heart disease with heart failure; I50.9 Heart failure, unspecified; J44.9 Chronic obstructive pulmonary disease, unspecified; F03.90 Unspecified dementia, unspecified severity, without behavioral disturbance, psychotic disturbance, mood disturbance, and anxiety; F31.9 Bipolar disorder, unspecified; Z86.73 Personal history of transient ischemic attack (TIA), and cerebral infarction without residual deficits; Z95.810 Presence of automatic (implantable) cardiac defibrillator; Z90.710 Acquired absence of both cervix and uterus; Z98.890 Other specified postprocedural states; Z79.01 Long term (current) use of anticoagulants; Z79.51 Long term (current) use of inhaled steroids; Z79.899 Other long term (current) drug therapy
CPT/HCPCS: 33264; 80048; 85027; 85610; 85730; 93641; C1882; J1100; J1580; J2405; J2704; J3010

== ENCOUNTER 2025-02-24 20:29 | Inpatient (IN) | payer MEDICARE, MEDICAID ==
[2025-02-24 21:44] LABS: Hematocrit 30.8 % (36.0-47.0); Hemoglobin 10.3 g/dL (12.0-16.0); Mean Corpuscular Hemoglobin 27.5 pg (27.0-31.0); Mean Corpuscular Volume 82.4 fL (78.0-98.0); Platelet Count 63 10x3/uL (130-400); Red Blood Cell (RBC) Count 3.74 mill/uL (4.20-5.40); White Blood Cell (WBC) Count 5.73 10x3/uL (4.8-10.8)
[2025-02-24 21:51] LABS: ALT (SGPT) Less than 7 U/L (Less than 34); AST (SGOT) 11 U/L (11-34); Albumin 3.6 g/dL (3.1-4.5); Alkaline Phosphatase 71 U/L (40-110); Anion Gap 16 mmol/L (10-20); BUN (Urea Nitrogen) 25 mg/dL (9.8-20.1); Bilirubin, Total 0.7 mg/dL (0.3-1.2); Calc. Creatinine Clearance 0 mL/min (70-130); Calcium 10.1 mg/dL (7.8-10.44); Carbon Dioxide 24 mmol/L (23-31); Chloride 108 mmol/L (98-107); Globulin 2.7 g/dL (2.4-3.5); Glucose 190 mg/dL (83-110); Potassium 4.3 mmol/L (3.5-5.1); Sodium 144 mmol/L (136-145)
[2025-02-24 22:00] LABS: Platelet Adequacy Comment Platelets Decreased; Smudge Cells 2.9 %
[2025-02-24] MEDS ORDERED: cefTRIAXone (ROCEPHIN) 1 GM VIAL ONE (22:23)
[2025-02-24 22:39] LABS: CAUTI Indications for Culture Dysuria,urgency,freq; Glucose, Urine (Dipstick) Normal (Negative); Leukocyte 500 Leu/uL (Negative); Protein, Urine (Dipstick) 200 mg/dL (Neg-Trace); RBC/HPF Greater than 50 HPF (0-3); Specific Gravity, Urine 1.023 (1.002-1.036); WBC/HPF Greater than 50 HPF (0-3)
[2025-02-24 22:40] LABS: Bacteria/HPF 1+ HPF (None Seen)
[2025-02-24 22:41] LABS: Urine Culture Reflex Yes Yes
[2025-02-24] MEDS ORDERED: Vancomycin 1 GM/200 ML (FROZEN) BAG ONE (23:37)
[2025-02-25] MEDS ORDERED: Bisacodyl 10 MG SUPP PR PRN (00:18)
[2025-02-25] MEDS ORDERED: Senokot S 8.6-50 MG TAB PO PRN (00:18)
[2025-02-25] MEDS ORDERED: Ondansetron PF 4 MG/2 ML Vial IVP PRN (00:18)
[2025-02-25] MEDS ORDERED: Calcium Carbonate 500 MG ChewTAB PO PRN (00:18)
[2025-02-25] MEDS ORDERED: Electrolyte Replacement Protocol 1 EACH FS SCH (00:30)
[2025-02-25] MEDS ORDERED: Potassium Chloride 20 MEQ in Premix 1 BAG IVPB PRN (00:45)
[2025-02-25] MEDS ORDERED: Magnesium 2 GM/50 ML(in water) 2 GM in Premix 1 BAG IVPB PRN (00:45)
[2025-02-25] MEDS ORDERED: PHOS-NAK 1 PKT PACK PO PRN (00:45)
[2025-02-25 00:59] VITALS: BMI 32.6
[2025-02-25] MEDS ORDERED: GUAIFENESIN SF SOLN 200 MG/10 ML UDCUP PO PRN (03:44)
[2025-02-25 05:50] LABS: Hematocrit 38.4 % (36.0-47.0); Hemoglobin 12.3 g/dL (12.0-16.0); Mean Corpuscular Hemoglobin 27.4 pg (27.0-31.0); Mean Corpuscular Volume 85.5 fL (78.0-98.0); Platelet Count 65 10x3/uL (130-400); Red Blood Cell (RBC) Count 4.49 mill/uL (4.20-5.40); White Blood Cell (WBC) Count 6.87 10x3/uL (4.8-10.8)
[2025-02-25 06:03] LABS: Anion Gap 15 mmol/L (10-20); BUN (Urea Nitrogen) 23 mg/dL (9.8-20.1); Calc. Creatinine Clearance 54 mL/min (70-130); Calcium 9.9 mg/dL (7.8-10.44); Carbon Dioxide 25 mmol/L (23-31); Chloride 110 mmol/L (98-107); Glucose 79 mg/dL (83-110); Potassium 4.2 mmol/L (3.5-5.1); Sodium 146 mmol/L (136-145)
[2025-02-25 06:17] LABS: Platelet Adequacy Comment Platelets Decreased; RBC Morphology Within Normal Limits; Smudge Cells 6.9 %
[2025-02-25] MEDS: Cholecalciferol 1,000 UNITS (25 MCG) TAB PO SCH (10:01)
[2025-02-25] MEDS: Divalproex Sodium 125 mg Sprinkle Capsule PO SCH (10:01)
[2025-02-25] MEDS: Metoprolol Succinate XL 25 MG ER.TAB PO SCH (10:02)
[2025-02-25] MEDS: Enoxaparin 40 MG (0.4 mL) SYRINGE SC SCH (10:16)
[2025-02-25] MEDS: Apixaban 2.5 MG TAB PO SCH (10:16)
[2025-02-25] MEDS: Vancomycin 1.25 GM / NS 250 ML VIAL-2-BAG IVPB SCH (14:34)
[2025-02-25] MEDS: Sertraline 25 MG TAB PO SCH (20:47)
[2025-02-25] MEDS: cefTRIAXone\\ROCEPHIN 2 GM in Sodium Chloride 0.9% 100 ML IVPB SCH (20:49)
[2025-02-25] MEDS ORDERED: cefTRIAXone\\ROCEPHIN 1 GM in Sodium Chloride 0.9% 100 ML IVPB SCH (22:30)
[2025-02-26 05:02] LABS: Hematocrit 38.1 % (36.0-47.0); Hemoglobin 12.0 g/dL (12.0-16.0); Mean Corpuscular Hemoglobin 27.0 pg (27.0-31.0); Mean Corpuscular Volume 85.6 fL (78.0-98.0); Platelet Count 74 10x3/uL (130-400); Red Blood Cell (RBC) Count 4.45 mill/uL (4.20-5.40); White Blood Cell (WBC) Count 6.75 10x3/uL (4.8-10.8)
[2025-02-26 05:09] LABS: Vancomycin, Random 17.0 ug/mL (See Comment)
[2025-02-26 05:13] LABS: Anion Gap 15 mmol/L (10-20); BUN (Urea Nitrogen) 22 mg/dL (9.8-20.1); Calc. Creatinine Clearance 53 mL/min (70-130); Calcium 9.5 mg/dL (7.8-10.44); Carbon Dioxide 23 mmol/L (23-31); Chloride 107 mmol/L (98-107); Glucose 121 mg/dL (83-110); Potassium 3.7 mmol/L (3.5-5.1); Sodium 141 mmol/L (136-145)
[2025-02-26] MEDS: Mupirocin 1 GM TUBE NASAL DECOLONIZATION NASAL SCH (09:39)
[2025-02-26] MEDS: Vancomycin 1.25 GM / NS 250 ML VIAL-2-BAG IVPB SCH (09:39)
[2025-02-26] MEDS: Acetaminophen 325 MG TAB PO PRN (20:29)
[2025-02-26] MEDS: Melatonin 3 MG TAB PO PRN (20:29)
[2025-02-27 04:42] LABS: Vancomycin, Random 18.8 ug/mL (See Comment)
[2025-02-27] MEDS: Vancomycin 1 GM in Premix 1 BAG IVPB SCH (10:36)
[2025-02-27 16:12] VITALS: BP 128/59; TEMP 97.8
[2025-02-28] MEDS ORDERED: Estrogens, Conjugated 30 GM TUBE VAG SCH (09:00)
== END 2025-02-27 22:30 | DRG 871 ==
LOC: ERS 20:29 → ERHOLD 02-25 00:22 → 2NO 02-25 02:14
PROVIDERS: ADMIT Internal Medicine; ATTEND Internal Medicine
DX: A41.9 Sepsis, unspecified organism (principal); G93.41 Metabolic encephalopathy; I50.22 Chronic systolic (congestive) heart failure; D61.818 Other pancytopenia; N39.0 Urinary tract infection, site not specified; E87.0 Hyperosmolality and hypernatremia; M00.9 Pyogenic arthritis, unspecified; D64.9 Anemia, unspecified; N18.30 Chronic kidney disease, stage 3 unspecified; D69.6 Thrombocytopenia, unspecified; Z79.899 Other long term (current) drug therapy; Z86.73 Personal history of transient ischemic attack (TIA), and cerebral infarction without residual deficits; Z98.890 Other specified postprocedural states; R53.81 Other malaise; G89.29 Other chronic pain; F32.A Depression, unspecified; F39 Unspecified mood [affective] disorder; G47.00 Insomnia, unspecified; I11.0 Hypertensive heart disease with heart failure; E78.00 Pure hypercholesterolemia, unspecified; F03.90 Unspecified dementia, unspecified severity, without behavioral disturbance, psychotic disturbance, mood disturbance, and anxiety; B96.4 Proteus (mirabilis) (morganii) as the cause of diseases classified elsewhere
CPT/HCPCS: 36415; 71045; 80048; 80053; 80202; 81001; 83605; 85025; 85027; 87040; 87077; 87086; 87186; J0696; J3373; J7050